=== PATIENT | female | born 1955 | race Caucasian/White ===

== ENCOUNTER → 2024-01-22 18:40 | Outpatient (REF) | payer MEDICARE, SELFPAY | LOC: WDC 18:40 | PROVIDERS: ATTENDING PHYSICIAN Family Medicine | DX: Z12.31 Encounter for screening mammogram for malignant neoplasm of breast (principal) | CPT/HCPCS: 77063; 77067 ==

== ENCOUNTER → 2025-03-11 13:46 | Outpatient (REF) | payer MEDICARE, SELFPAY | LOC: WDC 13:46 | PROVIDERS: ATTENDING PHYSICIAN Student in an Organized Health Care Education/Training Program | DX: M85.80 Other specified disorders of bone density and structure, unspecified site (principal); Z78.0 Asymptomatic menopausal state; Z12.31 Encounter for screening mammogram for malignant neoplasm of breast | CPT/HCPCS: 77063; 77067; 77080 ==